=== PATIENT | male | born 2005 | race Caucasian/White ===

== ENCOUNTER 2024-04-28 10:09 | Emergency (ER) | payer BC ==
[~2024-04-28] VITALS: Ht 162.6 cm; Wt 54.4 kg
[2024-04-28 10:18] VITALS: BP_SYST 119; PULSE 88; RESP 20; TEMP 98.3; O2SAT 98
[2024-04-28 10:51] LABS: BASOPHILS % (AUTO) 0.3 % (0.0-2.0); EOSINOPHILS % (AUTO) 0.2 % (0.0-4.0); HEMATOCRIT 42.7 % (36-54); HEMOGLOBIN 14.4 g/dL (14.0-18.0); LYMPHOCYTES % (AUTO) 10.4 % (20.5-51.5); MEAN CORPUSCULAR HEMOGLOBIN 29 pg (27-31); MEAN CORPUSCULAR HGB CONC 34 % (32-36); MEAN CORPUSCULAR VOLUME 86 fL (79.0-98.0); MONOCYTES # (AUTO) 1.1 K/uL (0.0-1.0); MONOCYTES % (AUTO) 11.9 % (1.7-9.3); NEUTROPHILS # (AUTO) 7.3 K/uL (1.8-7.7); NEUTROPHILS % (AUTO) 77.2 % (40.0-70.0); PLATELET COUNT (AUTO) 208 K/uL (130-430); RED BLOOD CELL COUNT(AUTO) 4.98 MIL/uL (4.2-6.2); RED CELL DISTRIBUTION WIDTH 13.1 % (9.0-15.0); WHITE BLOOD COUNT (AUTO) 9.4 K/uL (4.8-10.8)
[2024-04-28] MEDS: IBUPROFEN 600 MG TABLET PO ONE (11:29)
[2024-04-28 11:35] LABS: CALCIUM 9.1 mg/dL (8.4-11.0); CREATININE 0.72 mg/dL (0.55-1.30); POTASSIUM 3.9 mmol/L (3.5-5.1)
[2024-04-28] MEDS: KETOROLAC TROMETHAMINE 30 MG VIAL IM ONE (11:47)
[2024-04-28] MEDS: CLINDAMYCIN 300 MG/50 ML D5W 50 ML IV ONE (12:17)
[2024-04-28] MEDS ORDERED: CLIN-142 PO (12:38)
[2024-04-28] MEDS ORDERED: TRAM50TA2 PO (12:38)
== END 2024-04-28 13:00 | disposition home or self-care (01) ==
LOC: SED 10:09
DX: L03.211 Cellulitis of face (principal)
CPT/HCPCS: 99284; 96365; 80048; 85025; 36415; 96372; 83605; 82397; J3490; J1885